=== PATIENT | male | born 1935 | race Caucasian/White ===

== ENCOUNTER 2018-07-25 16:02 | Observation (INO) | payer OTHER ==
[2018-07-25] MEDS ORDERED: HEMOQUE CONTROL SOLUTION ONE (16:09)
--- NOTE | 2018-07-25 16:14 | PDOC ---
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 Patient was at an adult daycare, apparently had an episode where he's sat back and was not responsive to verbal stimuli Pt is largely a poor historian - Physicial Exam PE: 07/25/18 16:37 Pt is awake and alert Attends to examiner EOMI , pupils are round and reactive to light RRR CTA b/L No abd tenderness Neuro: Unable to hold right arm up against gravity Unable to hold right leg up against gravity Able to hold left arm against gravity sensation seems to be in tact EOMI intact Unclear if this patient responds appropriately to questioning Follows simple commands - Medical Decision Making 07/25/18 16:42 Pt presents with AMS and possible syncopal event H/o CVA Will do: Labs CT head EKG Place on observation
--- NOTE | 2018-07-25 16:28 | PDOC ---
History of Present Illness - General Chief Complaint: CVA/TIA Stated Complaint: ams, syncope Time Seen by Provider: 07/25/18 16:09 - History of Present Illness Initial Comments: The patient is an 83M with a history of HTN, PD, and dementia who presents from an adult day-care for evaluation of altered mental status/syncopal episode. Per EMS, the patient was being transported out of physical therapy, was attempting to stand from his chair, fell back to his chair and was reportedly unresponsive for a minute. Afterwards the patient was reportedly more tired than baseline. The daughter states that the patient requires assistance with all activities at baseline, is difficult to understand/mumbles, will answer yes/no questions, and will only periodically speak in full sentences. Per the patient's daughter and MPOA Stroke in September 2017 --Residual R sided weakness Dr. Raoul Kaba - neurologist (seen within last 2 months) PMH: HTN, PD, HLD 07/25/18 16:12 Past History - Past Medical History Allergies/Adverse Reactions: Allergies Allergy/AdvReac Type Severity Reaction Status Date / Time Penicillins Allergy Verified 07/25/18 17:56 Home Medications: Ambulatory Orders Acetaminophen [Tylenol] 2 tab PO Q6H PRN 07/25/18 Apixaban [Eliquis] 1 tab PO BID 07/25/18 Cholecalciferol (Vitamin D3) [Vitamin D] 2,000 unit PO DAILY 07/25/18 Finasteride 1 tab PO DAILY 07/25/18 Fluoxetine HCl 1 tab PO DAILY 07/25/18 Ketoconazole 2% Cream [Nizoral 2% Cream -] 1 applic TP DAILY 07/25/18 Lisinopril 1 tab PO DAILY 07/25/18 Metoprolol Tartrate 1 tab PO BID 07/25/18 Ranitidine [Zantac -] 150 mg PO DAILY 07/25/18 Sennosides/Docusate Sodium [Senna Plus Tablet] 2 each PO HS 07/25/18 Simvastatin 40 mg PO HS 07/25/18 Tamsulosin HCl 0.4 mg PO DAILY 07/25/18 traZODone HCL [Trazodone HCl] 25 mg PO HS 07/25/18 CVA: Yes COPD: No Dementia: Yes - Suicide/Smoking/Psychosocial Hx Smoking History: Unknown if ever smoked Hx Alcohol Use: No Drug/Substance Use Hx: No *Physical Exam - Vital Signs Last Vital Signs Temp Pulse Resp BP Pulse Ox 98.3 F 63 19 102/55 07/25/18 16:03 07/25/18 16:03 07/25/18 16:03 07/25/18 16:03 - Physical Exam Comments: GENERAL: Awake, tired, in no acute distress HEAD: No signs of trauma, normocephalic, atraumatic EYES: PERRL, sclera anicteric, conjunctiva clear ENT: Hearing grossly normal, nares patent, oropharynx clear without exudates. Moist mucosa NECK: Normal ROM, supple, no lymphadenopathy LUNGS: No distress, clear to auscultation bilaterally HEART:Regular rate and rhythm, normal S1 and S2, no murmurs appreciated, peripheral pulses normal and equal bilaterally ABDOMEN: Soft, nontender, normoactive bowel sounds. No guarding, no rebound NEUROLOGICAL: Follows one step commands; mumbled verbalizations, residual R sided weakness (all baseline per daughter s/p CVA in 09/2017) 07/25/18 19:05 ED Treatment Course - LABORATORY CBC & Chemistry Diagram: 07/25/18 16:41 07/25/18 16:41 - RADIOLOGY Radiology Studies Ordered: Category Date Time Status HEAD CT WITHOUT CONTRAST [CT] Stat CT Scan 07/25/18 16:10 Ordered CHEST X-RAY PORTABLE* [RAD] Stat Radiology 07/25/18 16:10 Ordered Medical Decision Making - Medical Decision Making The patient is an 83M with a history of dementia who presents from an adult day- care for evaluation of altered mental status/syncope Hx of dementia/CVA ED Course CMP, CBC, Trop I, Coags, UA, UCx ECG, CXR, CT Head Trop I neg INR wnl no leukocytosis No acute bleed on head CT Plan for admission for eval of syncope Dispo: admit UA pending 07/25/18 19:04 *DC/Admit/Observation/Transfer Diagnosis at time of Disposition: Syncope Qualifiers: Syncope type: unspecified Qualified Code(s): R55 - Syncope and collapse - Discharge Dispostion Condition at time of disposition: Guarded Decision to Admit order: Yes - Referrals - Patient Instructions - Post Discharge Activity
[2018-07-25 18:03] LABS: HEMATOCRIT 39.5 % (35.4-49); HEMOGLOBIN 13.4 GM/dl (11.7-16.9); MCH 31.7 pg (25.7-33.7); MCHC 33.8 g/dl (32.0-35.9); MEAN CELL VOLUME 93.9 fl (80-96); MEAN PLT VOLUME 9.3 fl (7.5-11.1); PLATELET COUNT 114 K/MM3 (134-434); RBC 4.21 M/mm3 (4.00-5.60); RDW 13.4 % (11.9-15.9); WHITE BLOOD COUNT 3.9 K/mm3 (4.0-10.8)
[2018-07-25 18:06] LABS: ALBUMIN 3.5 g/dl (3.5-5.0); ALK PHOS 71 U/L (32-92); ANION GAP 6 MMOL/L (8-16); BILIRUBIN,TOTAL 0.4 mg/dl (0.2-1.0); BLOOD UREA NITROGEN 24 mg/dl (7-18); CALCIUM 8.6 mg/dl (8.4-10.2); CHLORIDE 105 mmol/L (98-107); CO2 23 mmol/L (22-28); GLUCOSE,RANDOM 95 mg/dl (74-106); POTASSIUM 4.3 mmol/L (3.5-5.1); SGOT/AST 14 U/L (10-42); SGPT/ALT 10 U/L (10-40); SODIUM 134 mmol/L (136-145); TOT PROT 5.7 g/dl (6.4-8.3)
[2018-07-25 18:15] LABS: INR 1.27 (0.82-1.09); PROTHROMBIN TIME (PATIENT) 14.2 SEC (10.2-13.0)
[2018-07-25 19:49] LABS: PH,URINE 5.5 (4.5-8); URINE APPEARANCE Clear; URINE BILIRUBIN Negative (NEGATIVE); URINE COLOR Yellow; URINE GLUCOSE (UA) Negative (NEGATIVE); URINE KETONE Negative (NEGATIVE); URINE LEUK ESTERASE Negative (NEGATIVE); URINE NITRITE Negative (NEGATIVE); URINE PROTEIN Negative (NEGATIVE); URINE UROBILINOGEN 0.2 (0.2-1.0)
[2018-07-25 19:59] LABS: URINE WBC 0-2 (0-2)
[2018-07-25] MEDS ORDERED: APIXABAN 5 MG TABLET PO SCH (22:00)
[2018-07-25] MEDS: traZODone HCL 50 MG TABLET (FP) PO SCH (23:00)
[2018-07-25] MEDS: APIXABAN 5 MG TABLET PO SCH (23:02)
[2018-07-25] MEDS: METOPROLOL TARTRATE 25 MG TABLET (FP) PO SCH (23:02)
[2018-07-25] MEDS: ATORVASTATIN CA 20 MG TABLET (FP) PO SCH (23:02)
--- NOTE | 2018-07-25 23:02 | HP ---
<SenaMarylou R - Last Filed: 07/25/18 23:02> CHIEF COMPLAINT: Syncope PCP: HISTORY OF PRESENT ILLNESS: This is a 83 y/o man PMHx of HTN, CVA (right hemiparesis 2017). Who was Brought into emergency department by EMS after what appeared to be a syncopal episode. Patient was at an adult daycare, apparently had an episode where he's sat back and was not responsive to verbal stimuli Pt is largely a poor historian ER course was notable for: (1) Head CT- neg ICH (2) (3) Recent Travel: None PAST MEDICAL HISTORY: See HPI PAST SURGICAL HISTORY: Social History: Smoking: Unknown Alcohol: Unknown Drugs: Unknown Family History: Unable to obtain Allergies Penicillins Allergy (Verified 07/25/18 17:56) HOME MEDICATIONS: Home Medications Medication Instructions Recorded Acetaminophen [Tylenol] 2 tab PO Q6H PRN 07/25/18 Apixaban [Eliquis] 1 tab PO BID 07/25/18 Cholecalciferol (Vitamin D3) 2,000 unit PO DAILY 07/25/18 [Vitamin D] Finasteride 1 tab PO DAILY 07/25/18 Fluoxetine HCl 1 tab PO DAILY 07/25/18 Ketoconazole 2% Cream [Nizoral 2% 1 applic TP DAILY 07/25/18 Cream -] Lisinopril 1 tab PO DAILY 07/25/18 Metoprolol Tartrate 1 tab PO BID 07/25/18 Ranitidine [Zantac -] 150 mg PO DAILY 07/25/18 Sennosides/Docusate Sodium [Senna 2 each PO HS 07/25/18 Plus Tablet] Simvastatin 40 mg PO HS 07/25/18 Tamsulosin HCl 0.4 mg PO DAILY 07/25/18 traZODone HCL [Trazodone HCl] 25 mg PO HS 07/25/18 REVIEW OF SYSTEMS CONSTITUTIONAL: Absent: fever, chills, diaphoresis, generalized weakness, malaise, loss of appetite, weight change HEENT: Absent: rhinorrhea, nasal congestion, throat pain, throat swelling, difficulty swallowing, mouth swelling, ear pain, eye pain, visual changes CARDIOVASCULAR: syncope Absent: chest pain, syncope, palpitations, irregular heart rate, lightheadedness , peripheral edema RESPIRATORY: Absent: cough, shortness of breath, dyspnea with exertion, orthopnea, wheezing, stridor, hemoptysis GASTROINTESTINAL: Absent: abdominal pain, abdominal distension, nausea, vomiting, diarrhea, constipation, melena, hematochezia GENITOURINARY: Absent: dysuria, frequency, urgency, hesitancy, hematuria, flank pain, genital pain MUSCULOSKELETAL: Absent: myalgia, arthralgia, joint swelling, back pain, neck pain SKIN: Absent: rash, itching, pallor HEMATOLOGIC/IMMUNOLOGIC: Absent: easy bleeding, easy bruising, lymphadenopathy, frequent infections ENDOCRINE: Absent: unexplained weight gain, unexplained weight loss, heat intolerance, cold intolerance NEUROLOGIC: Absent: headache, focal weakness or paresthesias, dizziness, unsteady gait, seizure, mental status changes, bladder or bowel incontinence PSYCHIATRIC: Absent: anxiety, depression, suicidal or homicidal ideation, hallucinations. PHYSICAL EXAMINATION Vital Signs - 24 hr 07/25/18 07/25/18 07/25/18 16:03 16:27 17:30 Temperature 98.3 F 98.8 F Pulse Rate 63 Pulse Rate [ 62 Apical] Respiratory 19 19 Rate Blood Pressure 102/55 Blood Pressure 112/71 [Left Arm] O2 Sat by Pulse 100 Oximetry (%) 07/25/18 21:51 Temperature Pulse Rate Pulse Rate [ 62 Apical] Respiratory 16 Rate Blood Pressure Blood Pressure 102/67 [Left Arm] O2 Sat by Pulse 99 Oximetry (%) GENERAL: Awake, in no acute distress. HEAD: Normal with no signs of trauma. EYES: Pupils equal, round and reactive to light, extraocular movements intact, sclera anicteric, conjunctiva clear. No lid lag. EARS, NOSE, THROAT: Ears normal, nares patent, oropharynx clear without exudates. Moist mucous membranes. NECK: Normal range of motion, supple without lymphadenopathy, JVD, or masses. LUNGS: Breath sounds equal, clear to auscultation bilaterally. No wheezes, and no crackles. No accessory muscle use. HEART: Regular rate and rhythm, normal S1 and S2 without murmur, rub or gallop. ABDOMEN: Soft, nontender, not distended, normoactive bowel sounds, no guarding, no rebound, no masses. No hepatomegaly or splenomegaly. MUSCULOSKELETAL: Normal range of motion at all joints. No bony deformities or tenderness. No CVA tenderness. UPPER EXTREMITIES: 2+ pulses, warm, well-perfused. No cyanosis. No clubbing. No peripheral edema. LOWER EXTREMITIES: 2+ pulses, warm, well-perfused. No calf tenderness. No peripheral edema. NEUROLOGICAL: Cranial nerves II-XII intact. Normal speech. Gait not observed. PSYCHIATRIC: Cooperative. Good eye contact. Appropriate mood and affect. SKIN: Warm, dry, normal turgor, no rashes or lesions noted, normal capillary refill. Laboratory Results - last 24 hr 07/25/18 07/25/18 07/25/18 16:12 16:41 16:41 WBC 3.9 L RBC 4.21 Hgb 13.4 Hct 39.5 MCV 93.9 MCH 31.7 MCHC 33.8 RDW 13.4 Plt Count 114 L MPV 9.3 PT with INR 14.2 H INR 1.27 H PTT (Actin FS) Sodium Potassium Chloride Carbon Dioxide Anion Gap BUN Creatinine Creat Clearance w eGFR POC Glucometer [phone] Random Glucose Calcium Total Bilirubin AST ALT Alkaline Phosphatase Troponin I Total Protein Albumin Urine Color Urine Appearance Urine pH Ur Specific [place] Urine Protein Urine Glucose (UA) Urine Ketones Urine Blood Urine Nitrite Urine Bilirubin Urine Urobilinogen Ur Leukocyte Esterase Urine RBC Urine WBC 07/25/18 07/25/18 07/25/18 16:41 16:41 16:41 WBC RBC Hgb Hct MCV MCH MCHC RDW Plt Count MPV PT with INR INR PTT (Actin FS) 20.4 L Sodium 134 L Potassium 4.3 Chloride 105 Carbon Dioxide 23 Anion Gap 6 L BUN 24 H Creatinine 1.0 Creat Clearance w eGFR > 60 POC Glucometer Random Glucose 95 Calcium 8.6 Total Bilirubin 0.4 AST 14 ALT 10 Alkaline Phosphatase 71 Troponin I Total Protein 5.7 L Albumin 3.5 Urine Color Yellow Urine Appearance Clear Urine pH 5.5 Ur Specific [place] 1.020 Urine Protein Negative Urine Glucose (UA) Negative Urine Ketones Negative Urine Blood Trace-lysed H Urine Nitrite Negative Urine Bilirubin Negative Urine Urobilinogen 0.2 Ur Leukocyte Esterase Negative Urine RBC 2-5 Urine WBC 0-2 07/25/18 18:10 WBC RBC Hgb Hct MCV MCH MCHC RDW Plt Count MPV PT with INR INR PTT (Actin FS) Sodium Potassium Chloride Carbon Dioxide Anion Gap BUN Creatinine Creat Clearance w eGFR POC Glucometer Random Glucose Calcium Total Bilirubin AST ALT Alkaline Phosphatase Troponin I < 0.03 Total Protein Albumin Urine Color Urine Appearance Urine pH Ur Specific [place] Urine Protein Urine Glucose (UA) Urine Ketones Urine Blood Urine Nitrite Urine Bilirubin Urine Urobilinogen Ur Leukocyte Esterase Urine RBC Urine WBC ASSESSMENT/PLAN: 83 y/o man history of CVA, HTN. Placed on Tele Observation for Syncope for further evaluation of their emergent condition. Problem List - Problem (1) Syncope Assessment/Plan: - Likely secondary to Arrhythmia - Cardiac monitoring - Serial Enzymes - Appreciate Cardiology consult - Echo - Carotid Doppler r/o stenosis - Fall Precautions - Repeat CBC, BMP in am Code(s): R55 - SYNCOPE AND COLLAPSE Qualifiers: Syncope type: unspecified Qualified Code(s): R55 - Syncope and collapse (2) History of CVA (cerebrovascular accident) Assessment/Plan: - stable - Continue home meds - Fall Precautions Code(s): Z86.73 - PRSNL HX OF TIA (TIA), AND CEREB INFRC W/O RESID DEFICITS (3) HTN (hypertension) Assessment/Plan: - stable - Monitor BP - Continue home meds with parameters - Monitor renal function Code(s): I10 - ESSENTIAL (PRIMARY) HYPERTENSION Visit type - Emergency Visit Emergency Visit: Yes Care time: The patient presented to the Emergency Department on the above date and was hospitalized for further evaluation of their emergent condition. - New Patient This patient is new to me today: Yes Date on this admission: 07/25/18 - Critical Care Critical Care patient: No Hospitalist Screening - Colonoscopy Questionnaire Colonoscopy Questionnaire: Colonoscopy Questionnaire - Patient: 50 - 75 years old and never had a screening colonoscopy: Unknown History of colon or rectal polyps, or CA: Unknown History of IBD, Crohn's disease or UC: Unknown History of abdominal radiation therapy as a child: Unknown - Relative: 1 with colon or rectal CA, or polyps at age 60 or younger: Unknown Colon or rectal CA diagnosed at age 45 or younger: Unknown Multiple relatives with colon or rectal CA: Unknown - Outcome: Screening Result: Negative Screen <Adri Nugent - Last Filed: 07/26/18 12:41> CHIEF COMPLAINT: PCP: HISTORY OF PRESENT ILLNESS: ER course was notable for: (1) (2) (3) Recent Travel: PAST MEDICAL HISTORY: PAST SURGICAL HISTORY: Social History: Smoking: Alcohol: Drugs: Family History: Allergies Penicillins Allergy (Verified 07/25/18 17:56) HOME MEDICATIONS: Home Medications Medication Instructions Recorded Acetaminophen [Tylenol] 2 tab PO Q6H PRN 07/25/18 Apixaban [Eliquis] 1 tab PO BID 07/25/18 Cholecalciferol (Vitamin D3) 2,000 unit PO DAILY 07/25/18 [Vitamin D] Finasteride 1 tab PO DAILY 07/25/18 Fluoxetine HCl 1 tab PO DAILY 07/25/18 Ketoconazole 2% Cream [Nizoral 2% 1 applic TP DAILY 07/25/18 Cream -] Lisinopril 1 tab PO DAILY 07/25/18 Metoprolol Tartrate 1 tab PO BID 07/25/18 Ranitidine [Zantac -] 150 mg PO DAILY 07/25/18 Sennosides/Docusate Sodium [Senna 2 each PO HS 07/25/18 Plus Tablet] Simvastatin 40 mg PO HS 07/25/18 Tamsulosin HCl 0.4 mg PO DAILY 07/25/18 traZODone HCL [Trazodone HCl] 25 mg PO HS 07/25/18 REVIEW OF SYSTEMS CONSTITUTIONAL: Absent: fever, chills, diaphoresis, generalized weakness, malaise, loss of appetite, weight change HEENT: Absent: rhinorrhea, nasal congestion, throat pain, throat swelling, difficulty swallowing, mouth swelling, ear pain, eye pain, visual changes CARDIOVASCULAR: Absent: chest pain, syncope, palpitations, irregular heart rate, lightheadedness , peripheral edema RESPIRATORY: Absent: cough, shortness of breath, dyspnea with exertion, orthopnea, wheezing, stridor, hemoptysis GASTROINTESTINAL: Absent: abdominal pain, abdominal distension, nausea, vomiting, diarrhea, constipation, melena, hematochezia GENITOURINARY: Absent: dysuria, frequency, urgency, hesitancy, hematuria, flank pain, genital pain MUSCULOSKELETAL: Absent: myalgia, arthralgia, joint swelling, back pain, neck pain SKIN: Absent: rash, itching, pallor HEMATOLOGIC/IMMUNOLOGIC: Absent: easy bleeding, easy bruising, lymphadenopathy, frequent infections ENDOCRINE: Absent: unexplained weight gain, unexplained weight loss, heat intolerance, cold intolerance NEUROLOGIC: Absent: headache, focal weakness or paresthesias, dizziness, unsteady gait, seizure, mental status changes, bladder or bowel incontinence PSYCHIATRIC: Absent: anxiety, depression, suicidal or homicidal ideation, hallucinations. PHYSICAL EXAMINATION Vital Signs - 24 hr 07/25/18 07/25/18 07/25/18 16:03 16:27 17:30 Temperature 98.3 F 98.8 F Pulse Rate 63 Pulse Rate [ 62 Apical] Respiratory 19 19 Rate Blood Pressure 102/55 Blood Pressure 112/71 [Left Arm] O2 Sat by Pulse 100 Oximetry (%) 07/25/18 07/25/18 07/26/18 21:51 23:05 03:24 Temperature Pulse Rate Pulse Rate [ 62 62 56 L Apical] Respiratory 16 14 16 Rate Blood Pressure Blood Pressure 102/67 122/72 122/70 [Left Arm] O2 Sat by Pulse 99 96 100 Oximetry (%) 07/26/18 07/26/18 07/26/18 06:18 06:21 08:26 Temperature Pulse Rate 60 Pulse Rate [ 63 64 Apical] Respiratory 16 16 Rate Blood Pressure Blood Pressure 126/57 98/61 [Left Arm] O2 Sat by Pulse 100 98 98 Oximetry (%) 07/26/18 07/26/18 07/26/18 09:47 09:52 11:00 Temperature 97.8 F Pulse Rate Pulse Rate [ 62 63 Apical] Respiratory 18 16 Rate Blood Pressure Blood Pressure 118/62 115/72 [Left Arm] O2 Sat by Pulse 97 97 96 Oximetry (%) GENERAL: Awake, alert, and fully oriented, in no acute distress. HEAD: Normal with no signs of trauma. EYES: Pupils equal, round and reactive to light, extraocular movements intact, sclera anicteric, conjunctiva clear. No lid lag. EARS, NOSE, THROAT: Ears normal, nares patent, oropharynx clear without exudates. Moist mucous membranes. NECK: Normal range of motion, supple without lymphadenopathy, JVD, or masses. LUNGS: Breath sounds equal, clear to auscultation bilaterally. No wheezes, and no crackles. No accessory muscle use. HEART: Regular rate and rhythm, normal S1 and S2 without murmur, rub or gallop. ABDOMEN: Soft, nontender, not distended, normoactive bowel sounds, no guarding, no rebound, no masses. No hepatomegaly or splenomegaly. MUSCULOSKELETAL: Normal range of motion at all joints. No bony deformities or tenderness. No CVA tenderness. UPPER EXTREMITIES: 2+ pulses, warm, well-perfused. No cyanosis. No clubbing. No peripheral edema. LOWER EXTREMITIES: 2+ pulses, warm, well-perfused. No calf tenderness. No peripheral edema. NEUROLOGICAL: Cranial nerves II-XII intact. Normal speech. Normal gait. PSYCHIATRIC: Cooperative. Good eye contact. Appropriate mood and affect. SKIN: Warm, dry, normal turgor, no rashes or lesions noted, normal capillary refill. Laboratory Results - last 24 hr 07/25/18 07/25/18 07/25/18 16:12 16:41 16:41 WBC 3.9 L RBC 4.21 Hgb 13.4 Hct 39.5 MCV 93.9 MCH 31.7 MCHC 33.8 RDW 13.4 Plt Count 114 L MPV 9.3 Absolute Neuts (auto) Neutrophils % Lymphocytes % Monocytes % Eosinophils % Basophils % Nucleated RBC % PT with INR 14.2 H INR 1.27 H PTT (Actin FS) Sodium Potassium Chloride Carbon Dioxide Anion Gap BUN Creatinine Creat Clearance w eGFR POC Glucometer 124.94686 Random Glucose Calcium Phosphorus Magnesium Total Bilirubin AST ALT Alkaline Phosphatase Troponin I Total Protein Albumin Triglycerides Cholesterol Total LDL Cholesterol HDL Cholesterol Urine Color Urine Appearance Urine pH Ur Specific [place] Urine Protein Urine Glucose (UA) Urine Ketones Urine Blood Urine Nitrite Urine Bilirubin Urine Urobilinogen Ur Leukocyte Esterase Urine RBC Urine WBC 07/25/18 07/25/18 07/25/18 16:41 16:41 16:41 WBC RBC Hgb Hct MCV MCH MCHC RDW Plt Count MPV Absolute Neuts (auto) Neutrophils % Lymphocytes % Monocytes % Eosinophils % Basophils % Nucleated RBC % PT with INR INR PTT (Actin FS) 20.4 L Sodium 134 L Potassium 4.3 Chloride 105 Carbon Dioxide 23 Anion Gap 6 L BUN 24 H Creatinine 1.0 Creat Clearance w eGFR > 60 POC Glucometer Random Glucose 95 Calcium 8.6 Phosphorus Magnesium Total Bilirubin 0.4 AST 14 ALT 10 Alkaline Phosphatase 71 Troponin I Total Protein 5.7 L Albumin 3.5 Triglycerides Cholesterol Total LDL Cholesterol HDL Cholesterol Urine Color Yellow Urine Appearance Clear Urine pH 5.5 Ur Specific [place] 1.020 Urine Protein Negative Urine Glucose (UA) Negative Urine Ketones Negative Urine Blood Trace-lysed H Urine Nitrite Negative Urine Bilirubin Negative Urine Urobilinogen 0.2 Ur Leukocyte Esterase Negative Urine RBC 2-5 Urine WBC 0-2 07/25/18 07/26/18 07/26/18 18:10 00:01 06:00 WBC 3.9 L RBC 4.19 Hgb 13.1 Hct 38.8 MCV 92.6 MCH 31.2 MCHC 33.6 RDW 14.1 Plt Count 162 MPV 8.2 Absolute Neuts (auto) 1.8 Neutrophils % 46.9 Lymphocytes % 37.8 Monocytes % 11.5 H Eosinophils % 3.1 Basophils % 0.7 Nucleated RBC % 0 PT with INR INR PTT (Actin FS) Sodium Potassium Chloride Carbon Dioxide Anion Gap BUN Creatinine Creat Clearance w eGFR POC Glucometer Random Glucose Calcium Phosphorus Magnesium Total Bilirubin AST ALT Alkaline Phosphatase Troponin I < 0.03 < 0.02 Total Protein Albumin Triglycerides Cholesterol Total LDL Cholesterol HDL Cholesterol Urine Color Urine Appearance Urine pH Ur Specific [place] Urine Protein Urine Glucose (UA) Urine Ketones Urine Blood Urine Nitrite Urine Bilirubin Urine Urobilinogen Ur Leukocyte Esterase Urine RBC Urine WBC 07/26/18 07/26/18 06:00 06:00 WBC RBC Hgb Hct MCV MCH MCHC RDW Plt Count MPV Absolute Neuts (auto) Neutrophils % Lymphocytes % Monocytes % Eosinophils % Basophils % Nucleated RBC % PT with INR INR PTT (Actin FS) Sodium 144 Potassium 4.2 Chloride 110 H Carbon Dioxide 28 Anion Gap 6 L BUN 19 H Creatinine 0.8 Creat Clearance w eGFR > 60 POC Glucometer Random Glucose 87 Calcium 8.8 Phosphorus 3.9 Magnesium 2.2 Total Bilirubin AST ALT Alkaline Phosphatase Troponin I < 0.02 Total Protein Albumin Triglycerides 127 Cholesterol 141 Total LDL Cholesterol 99 HDL Cholesterol 38 L Urine Color Urine Appearance Urine pH Ur Specific [place] Urine Protein Urine Glucose (UA) Urine Ketones Urine Blood Urine Nitrite Urine Bilirubin Urine Urobilinogen Ur Leukocyte Esterase Urine RBC Urine WBC ASSESSMENT/PLAN: Hospitalist Screening - Colonoscopy Questionnaire Colonoscopy Questionnaire: Colonoscopy Questionnaire
[2018-07-25] MEDS: SENNOSIDES/DOCUSATE COMBO (SENNA PLUS) TABLET (UD) PO SCH (23:03)
[2018-07-26 06:47] LABS: BASO % 0.7 % (0-2.0); EOS % 3.1 % (0-4.5); HEMATOCRIT 38.8 % (35.4-49); HEMOGLOBIN 13.1 GM/dL (11.7-16.9); LYMPH % 37.8 % (8-40); MCH 31.2 pg (25.7-33.7); MCHC 33.6 g/dl (32.0-35.9); MEAN CELL VOLUME 92.6 fl (80-96); MEAN PLT VOLUME 8.2 fl (7.5-11.1); MONO % 11.5 % (3.8-10.2); NEUT % 46.9 % (42.8-82.8); PLATELET COUNT 162 K/MM3 (134-434); RBC 4.19 M/mm3 (4.00-5.60); RDW 14.1 % (11.9-15.9); WHITE BLOOD COUNT 3.9 K/mm3 (4.0-10.0)
[2018-07-26 07:10] LABS: CHOLESTEROL 141 mg/dL (50-200); HDL CHOLESTEROL 38 mg/dL (40-60); TRIGLYCERIDES 127 mg/dL (0-150)
[2018-07-26 07:11] LABS: ANION GAP 6 MMOL/L (8-16); BLOOD UREA NITROGEN 19 mg/dL (7-18); CALCIUM 8.8 mg/dL (8.5-10.1); CHLORIDE 110 mmol/L (98-107); CO2 28 mmol/L (21-32); CREATININE 0.8 mg/dL (0.55-1.3); GLUCOSE,RANDOM 87 mg/dL (74-106); MAGNESIUM 2.2 mg/dL (1.8-2.4); PHOSPHOROUS 3.9 mg/dL (2.5-4.9); POTASSIUM 4.2 mmol/L (3.5-5.1); SODIUM 144 mmol/L (136-145)
[2018-07-26 07:16] LABS: LDL CHOLESTEROL (ONLY DFH) 99 mg/dl
--- NOTE | 2018-07-26 07:45 | PN ---
Physical Exam: SUBJECTIVE: Patient seen and examined, patient is a alert, awake, denies any complaints OBJECTIVE: Patient is a 83 y/o man PMHx of HTN, CVA (right hemiparesis 2016), patient was admitted from the emergency department to observation for syncope episode. Vital Signs Period Temp Pulse Resp BP Sys/Rizvi Pulse Ox Last 24 Hr 98.3 F-98.8 F 56-63 14-19 102-126/55-72 96-100 GENERAL: The patient is awake, alert, and y oriented, in no acute distress. HEAD: Normal with no signs of trauma. EYES: PERRL, extraocular movements intact, sclera anicteric, conjunctiva clear. No ptosis. ENT: Ears normal, nares patent, oropharynx clear without exudates, moist mucous membranes. NECK: Trachea midline, full range of motion, supple. LUNGS: Breath sounds equal, clear to auscultation bilaterally, no wheezes, no crackles, no accessory muscle use. HEART: Regular rate and rhythm, S1, S2 without murmur, rub or gallop. ABDOMEN: Soft, nontender, nondistended, normoactive bowel sounds, no guarding, no rebound, no hepatosplenomegaly, no masses. EXTREMITIES: 2+ pulses, warm, well-perfused, no edema. right sided hemiparesis ( chronic) NEUROLOGICAL: Cranial nerves II through XII grossly intact. dysarthria, gait not observed. PSYCH: Normal mood, normal affect. SKIN: Warm, dry, normal turgor, no rashes or lesions noted Laboratory Results - last 24 hr 07/25/18 07/25/18 07/25/18 16:12 16:41 16:41 WBC 3.9 L RBC 4.21 Hgb 13.4 Hct 39.5 MCV 93.9 MCH 31.7 MCHC 33.8 RDW 13.4 Plt Count 114 L MPV 9.3 Absolute Neuts (auto) Neutrophils % Lymphocytes % Monocytes % Eosinophils % Basophils % Nucleated RBC % PT with INR 14.2 H INR 1.27 H PTT (Actin FS) Sodium Potassium Chloride Carbon Dioxide Anion Gap BUN Creatinine Creat Clearance w eGFR POC Glucometer [phone] Random Glucose Calcium Phosphorus Magnesium Total Bilirubin AST ALT Alkaline Phosphatase Troponin I Total Protein Albumin Triglycerides Cholesterol Total LDL Cholesterol HDL Cholesterol Urine Color Urine Appearance Urine pH Ur Specific [place] Urine Protein Urine Glucose (UA) Urine Ketones Urine Blood Urine Nitrite Urine Bilirubin Urine Urobilinogen Ur Leukocyte Esterase Urine RBC Urine WBC 07/25/18 07/25/18 07/25/18 16:41 16:41 16:41 WBC RBC Hgb Hct MCV MCH MCHC RDW Plt Count MPV Absolute Neuts (auto) Neutrophils % Lymphocytes % Monocytes % Eosinophils % Basophils % Nucleated RBC % PT with INR INR PTT (Actin FS) 20.4 L Sodium 134 L Potassium 4.3 Chloride 105 Carbon Dioxide 23 Anion Gap 6 L BUN 24 H Creatinine 1.0 Creat Clearance w eGFR > 60 POC Glucometer Random Glucose 95 Calcium 8.6 Phosphorus Magnesium Total Bilirubin 0.4 AST 14 ALT 10 Alkaline Phosphatase 71 Troponin I Total Protein 5.7 L Albumin 3.5 Triglycerides Cholesterol Total LDL Cholesterol HDL Cholesterol Urine Color Yellow Urine Appearance Clear Urine pH 5.5 Ur Specific [place] 1.020 Urine Protein Negative Urine Glucose (UA) Negative Urine Ketones Negative Urine Blood Trace-lysed H Urine Nitrite Negative Urine Bilirubin Negative Urine Urobilinogen 0.2 Ur Leukocyte Esterase Negative Urine RBC 2-5 Urine WBC 0-2 07/25/18 07/26/18 07/26/18 18:10 00:01 06:00 WBC 3.9 L RBC 4.19 Hgb 13.1 Hct 38.8 MCV 92.6 MCH 31.2 MCHC 33.6 RDW 14.1 Plt Count 162 MPV 8.2 Absolute Neuts (auto) 1.8 Neutrophils % 46.9 Lymphocytes % 37.8 Monocytes % 11.5 H Eosinophils % 3.1 Basophils % 0.7 Nucleated RBC % 0 PT with INR INR PTT (Actin FS) Sodium Potassium Chloride Carbon Dioxide Anion Gap BUN Creatinine Creat Clearance w eGFR POC Glucometer Random Glucose Calcium Phosphorus Magnesium Total Bilirubin AST ALT Alkaline Phosphatase Troponin I < 0.03 < 0.02 Total Protein Albumin Triglycerides Cholesterol Total LDL Cholesterol HDL Cholesterol Urine Color Urine Appearance Urine pH Ur Specific [place] Urine Protein Urine Glucose (UA) Urine Ketones Urine Blood Urine Nitrite Urine Bilirubin Urine Urobilinogen Ur Leukocyte Esterase Urine RBC Urine WBC 07/26/18 07/26/18 06:00 06:00 WBC RBC Hgb Hct MCV MCH MCHC RDW Plt Count MPV Absolute Neuts (auto) Neutrophils % Lymphocytes % Monocytes % Eosinophils % Basophils % Nucleated RBC % PT with INR INR PTT (Actin FS) Sodium 144 Potassium 4.2 Chloride 110 H Carbon Dioxide 28 Anion Gap 6 L BUN 19 H Creatinine 0.8 Creat Clearance w eGFR > 60 POC Glucometer Random Glucose 87 Calcium 8.8 Phosphorus 3.9 Magnesium 2.2 Total Bilirubin AST ALT Alkaline Phosphatase Troponin I < 0.02 Total Protein Albumin Triglycerides 127 Cholesterol 141 Total LDL Cholesterol 99 HDL Cholesterol 38 L Urine Color Urine Appearance Urine pH Ur Specific [place] Urine Protein Urine Glucose (UA) Urine Ketones Urine Blood Urine Nitrite Urine Bilirubin Urine Urobilinogen Ur Leukocyte Esterase Urine RBC Urine WBC Active Medications Generic Name Dose Route Start Last Admin Trade Name Freq PRN Reason Stop Dose Admin Apixaban 5 mg 07/25/18 22:00 07/25/18 23:02 Eliquis - PO 5 mg BID CAROL Administration Atorvastatin Calcium 20 mg 07/25/18 22:00 07/25/18 23:02 Lipitor - PO 20 mg HS CAROL Administration Finasteride 5 mg 07/26/18 10:00 Proscar - PO DAILY [facility] Fluoxetine HCl 20 mg 07/26/18 10:00 Prozac - PO DAILY [facility] Lisinopril 20 mg 07/26/18 10:00 Prinivil PO DAILY [facility] Metoprolol Tartrate 25 mg 07/25/18 22:00 07/25/18 23:02 Lopressor - PO Not Given BID [facility] Ranitidine HCl 150 mg 07/26/18 10:00 Zantac - PO DAILY [facility] Senna/Docusate Sodium 2 tablet 07/25/18 22:00 07/25/18 23:03 Pericolace - PO 2 tablet HS [facility] Administration Tamsulosin HCl 0.4 mg 07/26/18 08:30 Flomax - PO DAILY@0830 [facility] Trazodone HCl 25 mg 07/25/18 22:00 07/25/18 23:00 Desyrel - PO 25 mg HS CAROL Administration ASSESSMENT/PLAN: 1) cardiovascular syncope hypertension afib - continous cardiac monitoring,ekg reviewed this AM, afib w/junctional rhythmn - 1 episode of asymptomatic bradycardia noted on cardiac monitoring, hold beta ayden - pending echo and Carotid Dopplers - Troponin 3 wnl - Appreciate cardiology input - Appreciate neurology input 2) Neuro history of CVA right sided hemiparessis - fall precautions - swallow study - Neuro checks - appreciate neurologist input F/E/N - dysphagia diet - replete electrolytes prn ppx - oob - physical therapy evaluation - eliquis dispo: pt requires obsv tele admission Visit type - Emergency Visit Emergency Visit: Yes ED Registration Date: 07/25/18 Care time: The patient presented to the Emergency Department on the above date and was hospitalized for further evaluation of their emergent condition. - New Patient This patient is new to me today: Yes Date on this admission: 07/26/18 - Critical Care Critical Care patient: No - Discharge Referral Referred to [facility] Med P.C.: No
--- NOTE | 2018-07-26 08:08 | CON.CARD ---
Consult Consult Specialty:: Cardiology - History of Present Illness History of Present Illness: This is a 83 y/o man PMHx of HTN, CVA (right hemiparesis 2017). Who was Brought into emergency department by EMS after what appeared to be a syncopal episode. 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 Cardio/Vascular: Yes: HTN - Alcohol/Substance Use Hx Alcohol Use: No - Smoking History Smoking history: Unknown if ever smoked Home Medications - Allergies Allergies/Adverse Reactions: Allergies Allergy/AdvReac Type Severity Reaction Status Date / Time Penicillins Allergy Verified 07/25/18 17:56 - Home Medications Home Medications: Ambulatory Orders Acetaminophen [Tylenol] 2 tab PO Q6H PRN 07/25/18 Apixaban [Eliquis] 1 tab PO BID 07/25/18 Cholecalciferol (Vitamin D3) [Vitamin D] 2,000 unit PO DAILY 07/25/18 Finasteride 1 tab PO DAILY 07/25/18 Fluoxetine HCl 1 tab PO DAILY 07/25/18 Ketoconazole 2% Cream [Nizoral 2% Cream -] 1 applic TP DAILY 07/25/18 Lisinopril 1 tab PO DAILY 07/25/18 Metoprolol Tartrate 1 tab PO BID 07/25/18 Ranitidine [Zantac -] 150 mg PO DAILY 07/25/18 Sennosides/Docusate Sodium [Senna Plus Tablet] 2 each PO HS 07/25/18 Simvastatin 40 mg PO HS 07/25/18 Tamsulosin HCl 0.4 mg PO DAILY 07/25/18 traZODone HCL [Trazodone HCl] 25 mg PO HS 07/25/18 Review of Systems Unable to obtain ROS, reason: nonverbal Vital Signs: Vital Signs Temperature 98.8 F 07/25/18 16:27 Pulse Rate 63 07/26/18 06:21 Respiratory Rate 16 07/26/18 06:21 Blood Pressure 126/57 07/26/18 06:21 O2 Sat by Pulse Oximetry (%) 98 07/26/18 06:21 Constitutional: Yes: Well Nourished, No Distress, Calm Eyes: Yes: WNL, Conjunctiva Clear, EOM Intact HENT: Yes: WNL, Atraumatic, Normocephalic Neck: Yes: WNL, Supple, Trachea Midline Respiratory: Yes: WNL, Regular, CTA Bilaterally Gastrointestinal: Yes: WNL, Normal Bowel Sounds Renal/: Yes: WNL Cardiovascular: Yes: WNL, Regular Rate and Rhythm Musculoskeletal: Yes: WNL Extremities: Yes: WNL Integumentary: Yes: WNL ...Motor Strength: WNL Psychiatric: Yes: WNL, Alert, Oriented - Other Data Labs, Other Data: CBC, BMP 07/26/18 06:00 07/26/18 06:00 INR, PTT INR 1.27 (0.82-1.09) H 07/25/18 16:41 Troponin, BNP 07/25/18 07/26/18 07/26/18 18:10 00:01 06:00 Troponin I < 0.03 < 0.02 < 0.02 Troponin, BNP 07/25/18 07/26/18 07/26/18 18:10 00:01 06:00 Troponin I < 0.03 < 0.02 < 0.02 Imaging - Results Chest X-ray: Image Reviewed (cm increased markings) EKG: Image Reviewed (af) Problem List - Problems (1) HTN (hypertension) Code(s): I10 - ESSENTIAL (PRIMARY) HYPERTENSION (2) History of CVA (cerebrovascular accident) Code(s): Z86.73 - PRSNL HX OF TIA (TIA), AND CEREB INFRC W/O RESID DEFICITS (3) Syncope Code(s): R55 - SYNCOPE AND COLLAPSE Qualifiers: Syncope type: unspecified Qualified Code(s): R55 - Syncope and collapse Assessment/Plan syncope cva bradycardia plan admit to tele neuro eval hold beta blockers cont AC
[2018-07-26] MEDS: TAMSULOSIN HCL 0.4 MG CAP.ER.24H (FP) PO SCH (10:04)
--- NOTE | 2018-07-26 10:16 | EKG ---
Test Reason : Blood Pressure : / mmHG Vent. Rate : 062 BPM Atrial Rate : 241 BPM P-R Int : 000 ms QRS Dur : 070 ms QT Int : 430 ms P-R-T Axes : 000 -08 036 degrees QTc Int : 436 ms JUNCTIONAL RHYTHM ABNORMAL ECG NO PREVIOUS ECGS AVAILABLE Confirmed by BALJEET CANO MD ([id number]) on 07/26/2018 10:16:26 AM Referred By: DR MANRIQUEZ Confirmed By:BALJEET CANO MD
--- NOTE | 2018-07-26 10:16 | EKG ---
Test Reason : Blood Pressure : / mmHG Vent. Rate : 063 BPM Atrial Rate : 250 BPM P-R Int : 000 ms QRS Dur : 076 ms QT Int : 436 ms P-R-T Axes : 000 -07 044 degrees QTc Int : 446 ms POOR DATA QUALITY, INTERPRETATION MAY BE ADVERSELY AFFECTED ATRIAL FIBRILLATION ABNORMAL ECG WHEN COMPARED WITH ECG OF 25-JUL-2018 17:15, ATRIAL FIBRILLATION HAS REPLACED JUNCTIONAL RHYTHM Confirmed by JEROME FINLEY, BALJEET ([id number]) on 07/26/2018 10:16:34 AM Referred By: MARTIR HINOJOSA Confirmed By:BALJEET CANO MD
[2018-07-26] MEDS: RANITIDINE HCL 150 MG TABLET (FP) PO SCH (10:40)
[2018-07-26] MEDS: FLUoxetine HCL 20 MG CAPSULE (FP) PO SCH (10:40)
[2018-07-26] MEDS: APIXABAN 5 MG TABLET PO SCH ×2 (10:40→21:39)
[2018-07-26] MEDS: FINASTERIDE 5 MG TABLET (FP) PO SCH (10:40)
[2018-07-26] MEDS: METOPROLOL TARTRATE 25 MG TABLET (FP) PO SCH ×2 (11:14→21:40)
[2018-07-26] MEDS: LISINOPRIL 20 MG TABLET (FP) PO SCH (11:14)
--- NOTE | 2018-07-26 15:17 | ECHO ---
Name: CECIL CAPPS Exam:Adult Echocardiogram Study Date: 07/26/2018 01:03 PM Age: 83 yrs Reason For Study: SYNCOPE Height: 66 in Weight: 154 lb BSA: 1.8 m2 MMode/2D Measurements & Calculations IVSd: 0.98 cm Ao root diam: 3.3 cm LVIDd: 3.1 cm LA dimension: 4.0 cm LVIDs: 1.9 cm LVPWd: 0.92 cm EDV(Teich): 39.0 ml ESV(Teich): 10.5 ml Doppler Measurements & Calculations MV E max polina: 69.3 cm/sec MV dec slope: 368.9 cm/sec2 PI end-d oplina: 70.7 cm/sec Procedure A two-dimensional transthoracic echocardiogram with color flow and Doppler was performed. The study w as technically difficult with many images being suboptimal in quality. Left Ventricle The left ventricular size, thickness and function are normal. The left ventricular ejection fraction is normal. Regional wall motion abnormalities cannot be excluded due to limited visualization. Right Ventricle The right ventricle is not well visualized. Atria The left atrium is mildly dilated. The right atrium is mildly dilated. Mitral Valve There is mild mitral valve thickening. There is no mitral valve stenosis. There is no mitral regurgit ation noted. Tricuspid Valve The tricuspid valve is not well visualized. There is no tricuspid stenosis. There was insufficient TR detected to calculate RV systolic pressure. Aortic Valve There is moderate aortic valve thickening. The aortic valve is trileaflet. No hemodynamically signifi cant valvular aortic stenosis. No aortic regurgitation is present. Pulmonic Valve The pulmonic valve is not well visualized. There is no pulmonic valvular stenosis. Mild pulmonic valv ular regurgitation. Great Vessels The aortic root is normal size. Pericardium/Pleura There is no pericardial effusion. Interpretation Summary The left ventricular size, thickness and function are normal The left ventricular ejection fraction is normal. The left atrium is mildly dilated. The right atrium is mildly dilated. The aortic valve is trileaflet. There is moderate aortic valve thickening. Mild pulmonic valvular regurgitation. The study was technically difficult with many images being suboptimal in quality. Regional wall motion abnormalities cannot be excluded due to limited visualization. There was insufficient TR detected to calculate RV systolic pressure. MD Ryan Mills 07/26/2018 03:16 PM
--- NOTE | 2018-07-26 15:54 | CON.NEURO ---
Consult Consult Specialty:: Dany Referred by:: Hospitalist - History of Present Illness History of Present Illness: 83 years old man with hx CAd OA CVA 2017 [facility] ?? dementia presented with ?? 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 Cardio/Vascular: Yes: HTN - Alcohol/Substance Use Hx Alcohol Use: No - Smoking History Smoking history: Unknown if ever smoked Home Medications - Allergies Allergies/Adverse Reactions: Allergies Allergy/AdvReac Type Severity Reaction Status Date / Time Penicillins Allergy Verified 07/25/18 17:56 - Home Medications Home Medications: Ambulatory Orders Acetaminophen [Tylenol] 2 tab PO Q6H PRN 07/25/18 Apixaban [Eliquis] 1 tab PO BID 07/25/18 Cholecalciferol (Vitamin D3) [Vitamin D] 2,000 unit PO DAILY 07/25/18 Finasteride 1 tab PO DAILY 07/25/18 Fluoxetine HCl 1 tab PO DAILY 07/25/18 Ketoconazole 2% Cream [Nizoral 2% Cream -] 1 applic TP DAILY 07/25/18 Lisinopril 1 tab PO DAILY 07/25/18 Metoprolol Tartrate 1 tab PO BID 07/25/18 Ranitidine [Zantac -] 150 mg PO DAILY 07/25/18 Sennosides/Docusate Sodium [Senna Plus Tablet] 2 each PO HS 07/25/18 Simvastatin 40 mg PO HS 07/25/18 Tamsulosin HCl 0.4 mg PO DAILY 07/25/18 traZODone HCL [Trazodone HCl] 25 mg PO HS 07/25/18 Family Disease History - Family Disease History Family History: Unable to Obtain Review of Systems - Review of Systems Constitutional: reports: No Symptoms Eyes: reports: No Symptoms Physical Exam-Neuro Vital Signs: Vital Signs Temperature 97.8 F 07/26/18 09:47 Pulse Rate 63 07/26/18 11:00 Respiratory Rate 16 07/26/18 11:00 Blood Pressure 115/72 07/26/18 11:00 O2 Sat by Pulse Oximetry (%) 96 07/26/18 11:00 Constitutional: Yes: Well Nourished Neck: Yes: WNL Labs: CBC, BMP 07/26/18 06:00 07/26/18 06:00 INR, PTT INR 1.27 (0.82-1.09) H 07/25/18 16:41 - Neuro Exam Level Of Consciousness: Yes: Alert Eyes: Yes: PERRLA Speech: Garbled Dominant Hand: Right Cranial Nerves II-XII Intact: No Gag: Present DTR's: 1+ Left Bicep, 1+ Right Bicep, 1+ Left Tricep, 1+ Right Tricep Babinski: Present Response to light touch: Normal Motor Strength: 1/5: Right Arm, 2/5: Right Leg, 3/5: Left Leg, Left Arm Gait: Deferred Imaging - Results Cat Scan: Image Reviewed Problem List - Problems (1) History of CVA (cerebrovascular accident) Assessment/Plan: Episode of LOC ?? Cardiac arrythmia Ruleo out Seizure perfect time after stroke 1. Neuro check s 2. Repeat CT head tomorrow 3 .We cant do EEG at [facility] 4. Blood work for dementia 5. DVT prophylaxis Thank you for the kind referral Code(s): Z86.73 - PRSNL HX OF TIA (TIA), AND CEREB INFRC W/O RESID DEFICITS
[2018-07-26 16:41] VITALS: BMI 24.8
[2018-07-26] MEDS ORDERED: PNEUMOC 13-VAL CONJ-DIP CRM/PF 0.5 ML DISP.SYRIN IM ONE (16:45)
[2018-07-26] MEDS: traZODone HCL 50 MG TABLET (FP) PO SCH (21:38)
[2018-07-26] MEDS: SENNOSIDES/DOCUSATE COMBO (SENNA PLUS) TABLET (UD) PO SCH (21:39)
[2018-07-26] MEDS: ATORVASTATIN CA 20 MG TABLET (FP) PO SCH (21:39)
--- NOTE | 2018-07-27 08:33 | PN ---
Physical Exam: SUBJECTIVE: Patient seen and examined OBJECTIVE: Vital Signs Period Temp Pulse Resp BP Sys/Rizvi Pulse Ox Last 24 Hr 97.3 F-98.4 F 62-65 16-20 100-137/51-72 93-99 GENERAL: The patient is awake, alert, and fully oriented, in no acute distress. HEAD: Normal with no signs of trauma. EYES: PERRL, extraocular movements intact, sclera anicteric, conjunctiva clear. No ptosis. ENT: Ears normal, nares patent, oropharynx clear without exudates, moist mucous membranes. NECK: Trachea midline, full range of motion, supple. LUNGS: Breath sounds equal, clear to auscultation bilaterally, no wheezes, no crackles, no accessory muscle use. HEART: Regular rate and rhythm, S1, S2 without murmur, rub or gallop. ABDOMEN: Soft, nontender, nondistended, normoactive bowel sounds, no guarding, no rebound, no hepatosplenomegaly, no masses. EXTREMITIES: 2+ pulses, warm, well-perfused, no edema. NEUROLOGICAL: Cranial nerves II through XII grossly intact. Normal speech, gait not observed. PSYCH: Normal mood, normal affect. SKIN: Warm, dry, normal turgor, no rashes or lesions noted Active Medications Generic Name Dose Route Start Last Admin Trade Name Rodolfoq PRN Reason Stop Dose Admin Apixaban 5 mg 07/25/18 22:00 07/26/18 21:39 Eliquis - PO 5 mg BID CAROL Administration Atorvastatin Calcium 20 mg 07/25/18 22:00 07/26/18 21:39 Lipitor - PO 20 mg HS CAROL Administration Finasteride 5 mg 07/26/18 10:00 07/26/18 10:40 Proscar - PO 5 mg DAILY CAROL Administration Fluoxetine HCl 20 mg 07/26/18 10:00 07/26/18 10:40 Prozac - PO 20 mg DAILY CAROL Administration Lisinopril 20 mg 07/26/18 10:00 07/26/18 11:14 Prinivil PO Not Given DAILY CAROL Metoprolol Tartrate 25 mg 07/25/18 22:00 07/26/18 21:40 Lopressor - PO 25 mg BID CAROL Administration Ranitidine HCl 150 mg 07/26/18 10:00 07/26/18 10:40 Zantac - PO 150 mg DAILY CAROL Administration Senna/Docusate Sodium 2 tablet 07/25/18 22:00 07/26/18 21:39 Pericolace - PO 2 tablet HS CAROL Administration Tamsulosin HCl 0.4 mg 07/26/18 08:30 07/26/18 10:04 Flomax - PO Not Given DAILY@0830 CAROL Trazodone HCl 25 mg 07/25/18 22:00 07/26/18 21:38 Desyrel - PO 25 mg HS CAROL Administration ASSESSMENT/PLAN:
[2018-07-27] MEDS: METOPROLOL TARTRATE 25 MG TABLET (FP) PO SCH (09:25)
[2018-07-27] MEDS: APIXABAN 5 MG TABLET PO SCH (09:25)
[2018-07-27] MEDS: RANITIDINE HCL 150 MG TABLET (FP) PO SCH (09:25)
[2018-07-27] MEDS: LISINOPRIL 20 MG TABLET (FP) PO SCH (09:25)
[2018-07-27] MEDS: FLUoxetine HCL 20 MG CAPSULE (FP) PO SCH (09:25)
[2018-07-27] MEDS: TAMSULOSIN HCL 0.4 MG CAP.ER.24H (FP) PO SCH (09:25)
[2018-07-27] MEDS: FINASTERIDE 5 MG TABLET (FP) PO SCH (09:25)
--- NOTE | 2018-07-27 11:51 | DS ---
Physical Exam: SUBJECTIVE: Patient seen and examined, resting comfortably in bed, responds to name, voices no complaints OBJECTIVE:This is a 83 y/o man PMHx of HTN, CVA (right hemiparesis 2017). Who was Brought into emergency department by EMS after what appeared to be a syncopal episode. Patient was at an adult daycare, apparently had an episode where he's sat back and was not responsive to verbal stimuli Pt is largely a poor historian ER course was notable for: (1) Head CT- neg ICH Vital Signs Period Temp Pulse Resp BP Sys/Rizvi Pulse Ox Last 24 Hr 97.3 F-98.6 F 63-65 18-20 97-137/50-62 93-99 PHYSICAL EXAM GENERAL: The patient is awake, alert, and oriented times person, in no acute distress. HEAD: Normal with no signs of trauma. EYES: PERRL, extraocular movements intact, sclera anicteric, conjunctiva clear. ENT: Ears normal, nares patent, oropharynx clear without exudates, moist mucous membranes. NECK: Trachea midline, full range of motion, supple. LUNGS: Breath sounds equal, clear to auscultation bilaterally, no wheezes, no crackles, no accessory muscle use. HEART: irregular rate and rhythm, S1, S2 without murmur, rub or gallop. ABDOMEN: Soft, nontender, nondistended, normoactive bowel sounds, no guarding, no rebound, no hepatosplenomegaly, no masses. EXTREMITIES: 2+ pulses, warm, well-perfused, no edema. upper extremity 2/5 lower extremity 2/5 NEUROLOGICAL: Cranial nerves II through XII grossly intact. right sided facial droop, dysarthria, gait not observed. PSYCH: Normal mood, normal affect. SKIN: Warm, dry, normal turgor, no rashes or lesions noted. LABS CBC WBC 3.9 K/mm3 (4.0-10.0) L 07/26/18 06:00 RBC 4.19 M/mm3 (4.00-5.60) 07/26/18 06:00 Hgb 13.1 GM/dL (11.7-16.9) 07/26/18 06:00 Hct 38.8 % (35.4-49) 07/26/18 06:00 MCV 92.6 fl (80-96) 07/26/18 06:00 MCH 31.2 pg (25.7-33.7) 07/26/18 06:00 MCHC 33.6 g/dl (32.0-35.9) 07/26/18 06:00 RDW 14.1 % (11.9-15.9) 07/26/18 06:00 Plt Count 162 K/MM3 (134-434) 07/26/18 06:00 MPV 8.2 fl (7.5-11.1) 07/26/18 06:00 Absolute Neuts (auto) 1.8 K/mm3 (1.5-8.0) 07/26/18 06:00 Neutrophils % 46.9 % (42.8-82.8) 07/26/18 06:00 Lymphocytes % 37.8 % (8-40) 07/26/18 06:00 Monocytes % 11.5 % (3.8-10.2) H 07/26/18 06:00 Eosinophils % 3.1 % (0-4.5) 07/26/18 06:00 Basophils % 0.7 % (0-2.0) 07/26/18 06:00 Nucleated RBC % 0 % (0-0) 07/26/18 06:00 CMP Sodium 144 mmol/L (136-145) 07/26/18 06:00 Potassium 4.2 mmol/L (3.5-5.1) 07/26/18 06:00 Chloride 110 mmol/L (98-107) H 07/26/18 06:00 Carbon Dioxide 28 mmol/L (21-32) 07/26/18 06:00 Anion Gap 6 MMOL/L (8-16) L 07/26/18 06:00 BUN 19 mg/dL (7-18) H 07/26/18 06:00 Creatinine 0.8 mg/dL (0.55-1.3) 07/26/18 06:00 Creat Clearance w eGFR > 60 (>60) 07/26/18 06:00 POC Glucometer 124.72890 UNITS (80-120) 07/25/18 16:12 Random Glucose 87 mg/dL (74-106) 07/26/18 06:00 Calcium 8.8 mg/dL (8.5-10.1) 07/26/18 06:00 Phosphorus 3.9 mg/dL (2.5-4.9) 07/26/18 06:00 Magnesium 2.2 mg/dL (1.8-2.4) 07/26/18 06:00 Total Bilirubin 0.4 mg/dl (0.2-1.0) 07/25/18 16:41 AST 14 U/L (10-42) 07/25/18 16:41 ALT 10 U/L (10-40) 07/25/18 16:41 Alkaline Phosphatase 71 U/L (32-92) 07/25/18 16:41 Troponin I < 0.02 ng/ml (0.00-0.05) 07/26/18 06:00 Total Protein 5.7 g/dl (6.4-8.3) L 07/25/18 16:41 Albumin 3.5 g/dl (3.5-5.0) 07/25/18 16:41 Triglycerides 127 mg/dL (0-150) 07/26/18 06:00 Cholesterol 141 mg/dL (50-200) 07/26/18 06:00 Total LDL Cholesterol 99 mg/dl 07/26/18 06:00 HDL Cholesterol 38 mg/dL (40-60) L 07/26/18 06:00 Laboratory Tests 07/25/18 07/26/18 07/26/18 18:10 00:01 06:00 Troponin I < 0.03 < 0.02 < 0.02 IMAGING carotid doppler: mild Atherosclerotic disease, no hemodynamic significant stenosis echo: lv wnl head ct: no acute pathology HOSPITAL COURSE: Patient was Admitted for the emergency department to observation telemetry, for syncopal episode. Patient was noted to have an episode of bradycardia noted on cardiac monitoring. Toprol was held for admission patient remained in A. fib rate controlled. Dr Sloan, painter and decorator was consulted and followed. troponin x 3 wnl. Neurology, Dr Saenz was consulted. Patient has a past medical history of CVA with right-sided hemiparesis and frequent neuro checks was completed for admission. Patient remained at baseline. Plan: - Discharge home, discussed with Alexa patient is enrolled with [facility] - continue to hold toprol - follow up with neurolgy and cardiology within 2 weeks Date of Admission:07/25/18 Date of Discharge: 07/27/18 Minutes to complete discharge: 45 Discharge Summary Reason For Visit: SYNCOPE, ALTERED MENTAL STATUS Current Active Problems HTN (hypertension) (Acute) History of CVA (cerebrovascular accident) (Acute) Syncope (Acute) Condition: Improved - Instructions Diet, Activity, Other Instructions: continue to hold metoprol Please follow up with the neurologist and painter and decorator within 2 weeks If any new or persistent symptoms develop please return to emergency department Referrals: Ryan Mills MD [Staff Physician] - 2 Weeks Alec Saenz MD [Staff Physician] - 2 Weeks Disposition: VNS/HOME HEALTH CARE - Home Medications Comprehensive Discharge Medication List: Ambulatory Orders Acetaminophen [Tylenol] 2 tab PO Q6H PRN 07/25/18 Apixaban [Eliquis] 1 tab PO BID 07/25/18 Cholecalciferol (Vitamin D3) [Vitamin D] 2,000 unit PO DAILY 07/25/18 Finasteride 1 tab PO DAILY 07/25/18 Fluoxetine HCl 1 tab PO DAILY 07/25/18 Ketoconazole 2% Cream [Nizoral 2% Cream -] 1 applic TP DAILY 07/25/18 Lisinopril 1 tab PO DAILY 07/25/18 Metoprolol Tartrate 1 tab PO BID 07/25/18 Ranitidine [Zantac -] 150 mg PO DAILY 07/25/18 Sennosides/Docusate Sodium [Senna Plus Tablet] 2 each PO HS 07/25/18 Simvastatin 40 mg PO HS 07/25/18 Tamsulosin HCl 0.4 mg PO DAILY 07/25/18 traZODone HCL [Trazodone HCl] 25 mg PO HS 07/25/18 This patient is new to me today: No Emergency Visit: No Critical Care patient: No - Discharge Referral Referred to [facility] No
[2018-07-27 14:43] VITALS: BP 104/59; PULSE 60; TEMP 98.3
== END 2018-07-27 16:00 | disposition home health service (06) ==
LOC: FER 16:02 → FM/S 21:42
PROVIDERS: ADMIT Internal Medicine; ATTEND Nurse Practitioner Family
DX: R55 Syncope and collapse (principal); I10 Essential (primary) hypertension; R00.1 Bradycardia, unspecified; I69.851 Hemiplegia and hemiparesis following other cerebrovascular disease affecting right dominant side; I48.91 Unspecified atrial fibrillation; Z79.01 Long term (current) use of anticoagulants; F03.90 Unspecified dementia, unspecified severity, without behavioral disturbance, psychotic disturbance, mood disturbance, and anxiety
CPT/HCPCS: 36415; 70450-TC; 71045-TC-FY; 80048; 80053; 80061; 81003; 81015; 82962; 83735; 84100; 84484; 85025; 85027; 85610; 85730; 93005; 93306-TC; 93880-TC; 97161-GP; 99285-25; G0378